=== PATIENT | female | born 1945 ===

== ENCOUNTER 2018-12-13 20:10 | Emergency (ER) | payer OTHER ==
[~2018-12-13] VITALS: Ht 160 cm; Wt 55.8 kg
[~2018-12-13 20:10] MED LIST: DICLOFENAC POTA50 MG PO
== END 2018-12-13 21:59 | disposition home or self-care (01) ==
LOC: ER 20:10
DX: S00.03XA Contusion of scalp, initial encounter (principal); W18.09XA Striking against other object with subsequent fall, initial encounter; Y93.89 Activity, other specified; Y92.89 Other specified places as the place of occurrence of the external cause; Y99.8 Other external cause status

== ENCOUNTER 2022-07-14 11:42 | Inpatient (IN) | payer OTHER ==
[~2022-07-14] VITALS: Ht 160 cm; Wt 40.8 kg
[~2022-07-14 11:42] MED LIST changes: +COZAAR25 MG PO; +NORVASC5 MG PO; +NUPLAZID34 MG PO; +REMERON30 M1 PO
[2022-07-14] MEDS ORDERED: LEVO-T112 MCG PO (12:04)
[2022-07-14] MEDS ORDERED: SINEMET 10-1001 EACH PO (12:05)
[2022-07-14] MEDS ORDERED: ACTOS30 MG PO (12:06)
[2022-07-14] MEDS ORDERED: CELEXA10 MG PO (12:06)
[2022-07-14] MEDS ORDERED: VITAMIN B-121000 MC4 PO (12:07)
[2022-07-14] MEDS ORDERED: CRESTOR20 MG PO (12:07)
[2022-07-14] MEDS ORDERED: COLACE100 MG PO (12:08)
[2022-07-14] MEDS ORDERED: RYTARY ER 48.71 EACH PO (12:10)
[2022-07-17] MEDS ORDERED: TRAZODONE HCL50 MG (15:46)
[2022-07-17] MEDS ORDERED: NUPLAZID34 MG (15:46)
[2022-07-17] MEDS ORDERED: CARBIDOPA-LEVO1 EA10 (15:47)
[2022-07-17] MEDS ORDERED: CARBIDOPA-LEVO1 EA12 (15:47)
== END 2022-07-20 18:13 | disposition home or self-care (01) | DRG 812 ==
LOC: ER 11:42 → EDBD 11:46 → SURG 07-15 08:07 → SEC-K 07-15 08:07 → SURH 07-15 08:07 → SURG 07-15 08:24 → SURH 07-16 21:59
PROVIDERS: ADMIT Internal Medicine; ATTEND Internal Medicine
PROC: BW21YZZ Computerized Tomography (CT Scan) of Abdomen and Pelvis using Other Contrast (ICD-10-PCS; 2022-07-14)
PROC: 3E0F7SF Introduction of Other Gas into Respiratory Tract, Via Natural or Artificial Opening (ICD-10-PCS; 2022-07-15)
PROC: 30233N1 Transfusion of Nonautologous Red Blood Cells into Peripheral Vein, Percutaneous Approach (ICD-10-PCS; principal; 2022-07-16)
PROC: 4A12X4Z Monitoring of Cardiac Electrical Activity, External Approach (ICD-10-PCS; 2022-07-19)
DX: D64.89 Other specified anemias (principal); N39.0 Urinary tract infection, site not specified; K52.9 Noninfective gastroenteritis and colitis, unspecified; B96.29 Other Escherichia coli [E. coli] as the cause of diseases classified elsewhere; B96.4 Proteus (mirabilis) (morganii) as the cause of diseases classified elsewhere; G20 Parkinson's disease; I10 Essential (primary) hypertension; E11.9 Type 2 diabetes mellitus without complications; E03.9 Hypothyroidism, unspecified; Z74.01 Bed confinement status; Z20.822 Contact with and (suspected) exposure to COVID-19